=== PATIENT | female | born 1965 | race Caucasian/White ===

== ENCOUNTER 2018-06-14 04:20 | Inpatient (IN) ==
[2018-06-14 04:43] LABS: Basophils # 0.1 K/mm3 (0-0.2); Basophils % 0.5 % (0.1-2.0); Eosinophils # 0.2 K/mm3 (0.0-0.4); Eosinophils % 1.6 % (0.1-12.0); Hematocrit 48.9 % (37.0-47.0); Lymphocytes # 4.7 K/mm3 (0.7-4.5); Lymphocytes % 46.4 % (10-50); Mean Corpuscular HGB Conc 32.7 g/dL (31.8-35.4); Mean Corpuscular Hemoglobin 30.5 pg (27.0-31.2); Mean Corpuscular Volume 93.3 fl (81-99); Mean Platelet Volume 10.2 fl (7.4-10.4); Monocytes # 0.7 K/mm3 (0.1-1.0); Monocytes % 6.8 % (1.7-9.3); Neutrophils # 4.5 K/mm3 (1.8-7.8); Neutrophils % 44.7 % (37.0-80.0); Platelet Count 178 K/mm3 (142-424); Red Blood Count 5.24 M/mm3 (4.20-5.40); Red Cell Distribution Width 13.4 % (11.5-17.5)
[2018-06-14 04:54] LABS: Anion Gap 13.3 mEq/L (5-15); Blood Urea Nitrogen 20 mg/dL (7-18); Calcium 9.1 mg/dL (8.5-10.1); Carbon Dioxide 32 mmol/L (21.0-32.0); Chloride 103 mmol/L (98-107); Glucose 134 mg/dL (74-106); Potassium 3.3 mmoL/L (3.5-5.1); Sodium 145 mmol/L (136-145)
--- NOTE | 2018-06-14 05:01 | Emergency Department Note ---
ED Disposition Clinical Impression: Accelerated essential hypertension Disposition: Home, Self-Care Condition on Discharge: Good Instructions: High Blood Pressure Additional Instructions: follow up with Dr. Melendez on saturday, call for follow up appointment. Return for recurrent chest discomfrt Prescriptions: Amlodipine Besylate [Amlodipine 5mg tab] 5 mg PO DAILY 10 Days #10 tab Referrals: Provider,Referral, MD [Primary Care Provider] - Time of Disposition: 06:48 - Critical Care Critical Care Time: No Attestation: On 06/14/18, the high probability of a clinically significant, sudden or life threatening deterioration of the following system(s) required my full and direct attention, intervention and personal management. The time I documented below is in addition to time spent performing reported procedures but includes the following listed in this critical care notation. Medical Decision Making - Medical Records Medical records reviewed: Yes: I reviewed the patient's medical records. - Yousuf Inquiry Pt receiving controlled substance: No Yousuf was queried for this patient: No Vital Signs: 06/14/18 04:21 06/14/18 04:50 06/14/18 05:18 Temperature 98.8 F 98.8 F Temperature Source Oral Oral Pulse Rate [Right Radial] 69 60 73 Respiratory Rate 16 16 16 Blood Pressure [Right Arm] 210/135 H 175/117 H 176/105 H Blood Pressure Mean [Right Arm] 160 136 128 Blood Pressure Source [Right Arm] Automatic Cuff Automatic Cuff Blood Pressure Position [Right Arm] Sitting Supine 02 Sat by Pulse Oximetry 97 98 97 Oxygen Delivery Method Room Air Room Air Room Air 06/14/18 05:30 06/14/18 06:11 Temperature 98.7 F Temperature Source Oral Pulse Rate [Right Radial] 74 82 Respiratory Rate 17 16 Blood Pressure [Right Arm] 137/77 144/84 H Blood Pressure Mean [Right Arm] 97 104 Blood Pressure Source [Right Arm] Automatic Cuff Blood Pressure Position [Right Arm] Supine 02 Sat by Pulse Oximetry 94 L 97 Oxygen Delivery Method Room Air Room Air - Lab Data Lab results reviewed: Yes: I reviewed the patient's lab results. Lab Results 06/14/18 04:30: WBC 10.0, RBC 5.24, Hgb 16.0, Hct 48.9 H, MCV 93.3, MCH 30.5, MCHC 32.7, RDW 13.4, Plt Count 178, MPV 10.2, Neut % (Auto) 44.7, Lymph % (Auto) 46.4, [place] % (Auto) 6.8, Eos % (Auto) 1.6, Baso % (Auto) 0.5, Neut # (Auto) 4.5, Lymph # (Auto) 4.7 H, [place] # (Auto) 0.7, Eos # (Auto) 0.2, Baso # (Auto) 0.1 06/14/18 04:30: Sodium 145, Potassium 3.3 L, Chloride 103, Carbon Dioxide 32, Anion Gap 13.3, BUN 20 H, Creatinine 0.89, Estimated Creat Clear 107, Estimated GFR 67, Est GFR ( Amer) 81, Glucose 134 H, Calcium 9.1, Troponin I < 0.02 Result diagrams: 06/14/18 04:30 06/14/18 04:30 Orders (Tests/Meds): ED MEDICATIONS Generic Name Dose Route Start Last Admin Trade Name Freq PRN Reason Stop Dose Admin Sodium Chloride 10 ml 06/14/18 04:28 Saline Flush 10ml Syringe IV 07/14/18 04:27 NEEDED PRN Maintain IV Site Discontinued Medications Generic Name Dose Route Start Last Admin Trade Name Freq PRN Reason Stop Dose Admin Aspirin 324 mg 06/14/18 04:28 06/14/18 04:38 Aspirin 81mg Chewable Tablet PO 06/14/18 04:29 324 mg ONCE ONE Administration Hydralazine HCl 20 mg 06/14/18 04:34 06/14/18 04:38 Apresoline 20mg/Ml 1ml Vial IV 06/14/18 04:35 20 mg ONCE ONE Administration Hydralazine HCl 20 mg 06/14/18 04:36 Apresoline 20mg/Ml 1ml Vial IV 06/14/18 04:37 ONCE ONE Ondansetron HCl 4 mg 06/14/18 05:08 06/14/18 05:17 Zofran 4mg/2ml Vial IV 06/14/18 05:09 4 mg ONCE ONE Administration ORDERS Category Date Time Status Trop I [Troponin I] Stat Lab 06/14/18 06:22 Ordered Chest Pain HPI - General Chief Complaint: Chest Pain Stated Complaint: Chest Pain Time Seen by Provider: 06/14/18 04:58 Mode of Arrival: Ambulatory Source of Information: Patient Limitations: No Limitations Description of Symptoms (Recalled from ER Triage Doc. 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 Presents asymptomatic but with elevated pressures - Related Data Home Medications Medication Instructions Recorded Confirmed escitalopram 10 mg tablet 10 mg PO ONCE 05/08/17 06/14/18 hydrochlorothiazide 12.5 mg tablet 12.5 mg PO QAM 05/08/17 06/14/18 lisinopril 20 mg tablet 20 mg PO ONCE 05/08/17 06/14/18 Previous Rx's Medication Instructions Recorded Amlodipine Besylate [Amlodipine 5 mg PO DAILY 10 Days #10 tab 06/14/18 5mg tab] Allergies Allergy/AdvReac Type Severity Reaction Status Date / Time No Known Allergies Allergy Verified 06/14/18 04:27 [facility] History - Hepatitis A Screen Drug use history?: No High risk sexual behaviors?: No History of sexually transmitted infection?: No Currently employed?: No Childcare worker?: No Do you have indoor plumbing?: Yes Do you have electricity?: Yes Attestation statement:: This patient has been screened for Hepatitis A risk factors. I have reviewed the patient's past medical history: Yes Medical History: Reports:: Depression, Hypertension Other Surgeries: Yes: No Previous Surgery Amputation: No Fractures: No - Social History Smoking Status: Current every day smoker Tobacco Type: cigarettes Alcohol Intake: never Occupational Status: employed - Psychiatric History Expresses thoughts of harming self/others: None Suicide Plan Description: No Plan Pschychiatric History:: Reports:: Depression Family Hx:: Hypertension ROS Obtained: Yes All systems reviewed & no additional complaints - Constitutional Constitutional: Denies chills - Eyes Eyes: Denies change in vision - ENT Ears, Nose, Mouth, and Throat: Denies sore throat, Denies throat swelling - Cardiovascular Cardiovascular: Reports system reviewed and no additional complaints, except as docu, Reports chest pain, Reports chest pain at rest, Denies dyspnea, Denies leg edema, Denies rapid heart rate (resolved) - Respiratory Respiratory: Yes system reviewed and no additional complaints, except as docu, Yes chest congestion, Yes cough - Gastrointestinal Gastrointestingal: Reports: system reviewed and no additional complaints, except as docu. Denies: diarrhea, nausea, vomiting - Genitourinary Female Genitourinary: Denies dysuria, Denies flank pain - Musculoskeletal Musculoskeletal: Reports system reviewed and no additional complaints, except as docu, Denies joint pain, Denies joint stiffness, Denies joint swelling - Integumentary/Breasts Skin/Breast: Denies rash - Neurologic Neurologic: Denies behavioral changes, Denies headache(s), Denies tingling/numbness/burning sensations, Denies syncope, Denies tingling, Denies weakness - Hematologic/Lymphatic Henatologic/Lymphatic: Denies easy bleeding, Denies easy bruising Physical Exam - General General appearance: alert, in no apparent distress, obese - Head Head exam: atraumatic, normocephalic, normal inspection - Eye Eye exam: Present: normal appearance, PERRL, EOMI - ENT ENT exam: Present: normal exam - Neck Neck exam: Present: normal inspection - Respiratory Respiratory exam: Present: normal lung sounds bilaterally. Absent: respiratory distress - Cardiovascular Cardiovascular exam: Present: regular rate, normal rhythm. Absent: bradycardia, tachycardia, JVD - Abdominal Exam Abdominal exam: Present: soft. Absent: distention, tenderness, guarding, rebound - Extremities Exam Extremities exam: Present: normal inspection, full ROM, normal capillary refill. Absent: calf tenderness - Neurological Exam Neurological exam: Present: alert, oriented X3 - Skin Skin exam: Present: warm, dry, intact, normal color - Lymphatic Lymphatic Findings: no adenopathy
[2018-06-14 09:38] LABS: Basophils # 0.1 K/mm3 (0-0.2); Basophils % 0.4 % (0.1-2.0); Eosinophils # 0.1 K/mm3 (0.0-0.4); Eosinophils % 0.7 % (0.1-12.0); Hematocrit 48.4 % (37.0-47.0); Lymphocytes # 3.5 K/mm3 (0.7-4.5); Mean Corpuscular HGB Conc 32.9 g/dL (31.8-35.4); Mean Corpuscular Hemoglobin 30.3 pg (27.0-31.2); Mean Corpuscular Volume 92.1 fl (81-99); Mean Platelet Volume 9.9 fl (7.4-10.4); Monocytes # 0.6 K/mm3 (0.1-1.0); Monocytes % 3.9 % (1.7-9.3); Neutrophils # 10.2 K/mm3 (1.8-7.8); Platelet Count 165 K/mm3 (142-424); Red Blood Count 5.26 M/mm3 (4.20-5.40); Red Cell Distribution Width 13.4 % (11.5-17.5); White Blood Count 14.4 K/mm3 (4.8-10.8)
[2018-06-14 10:36] LABS: Anion Gap 17.3 mEq/L (5-15); Calcium 9.3 mg/dL (8.5-10.1)
[2018-06-14 10:41] LABS: Potassium 3.3 mmoL/L (3.5-5.1)
--- NOTE | 2018-06-14 11:31 | Pharmacy Consult Notes ---
[facility] Pharmacy VTE Monitoring - Patient Demographics Admission date: 06/14/18 Report Date: 06/14/18 Time: 11:30 Allergies/Adverse Reactions: Patient Allergies No Known Allergies Allergy (Verified 06/14/18 04:27) Height: 1.57 m Weight: 87.861 kg Patient Problems: Current Active Problems Accelerated essential hypertension (Acute) - VTE Risk Labs: VTE Related Lab Results Hgb 16.0 g/dL (12.2-16.2) 06/14/18 09:24 Hct 48.4 % (37.0-47.0) H 06/14/18 09:24 Plt Count 165 K/mm3 (142-424) 06/14/18 09:24 APTT 104.3 seconds (23.6-34.0) H* 06/14/18 09:24 BUN 14 mg/dL (7-18) D 06/14/18 09:24 Creatinine 0.73 mg/dL (0.55-1.02) 06/14/18 09:24 Estimated Creat Clear 126 mL/min (50-200) 06/14/18 09:24 Was VTE Risk Assessment Performed: Yes VTE Score: 2 VTE Risk Level: Low Risk - Prophylaxis VTE Prophylaxis Ordered?: Yes Types of VTE Prophylaxis: TEDS Knee High (RONI HOSE ORDER PLACED) Location of Applied Device: Not Applicable
--- NOTE | 2018-06-14 13:51 | History & Physical Report ---
*Admission Date: 06/14/18 *Chief complaint: Chest pressure and left arm pain *History of present illness: Mrs. Adrian is a 52-year-old female with history of anxiety and hypertension who presented to the ER this morning due to an episode of chest pressure and left arm pain. She reports her blood pressure has been a little less well-controlled over the past several days. She has been asymptomatic until today when she awoke this morning, was doing some laundry and subsequently developed some chest pressure that began to refer to her left arm. At that time she woke her with concern that she was having a heart attack. She presented to the ER where she was found to be hypertensive with systolics greater than 200. Initial lab work showed a normal troponin. Subsequent labs after improving blood pressure with a dose of hydralazine showed a bump in her troponin and some T wave abnormalities. Cardiology was consulted emergently and patient was taken to the [facility] for concern of ACS. Findings consistent with Takatsubo cardiomyopathy.Findings on left heart cath as follows: 1. Trivial coronary artery disease. 2. Borderline normal left ventricular systolic function with severe apical and apical anterior wall hypokinesis 3. Normal left ventricular end-diastolic pressure 4. Normal solitary bilateral renal arteries Patient examined after getting to the floor. Currently denies any chest pain, referred pains, shortness of breath, nausea, vomiting. Has some minimal sore ness at site of cath insertion in right groin. Otherwise feeling a little tired. [facility] History I have reviewed the patient's past medical history: Yes Medical History: Reports:: Depression, Hypertension Denies:: Cancer, Diabetes Mellitus Type 1, Diabetes Mellitus Type 2, MRSA *Have you ever received a pneumonia vaccine?: No *Have you received a flu vaccine this season?: Yes Other Surgeries: Yes: No Previous Surgery Amputation: No Fractures: No - *Social History Educational Level: Completed College Smoking Status: Current every day smoker Tobacco Type: cigarettes # Packs/Day (cigarettes): 1 Alcohol Intake: never *Occupational Status:: employed Housing: house Household Members: spouse *Travel in the last 8 weeks: None - Psychiatric History Expresses thoughts of harming self/others: None Suicide Plan Description: No Plan Pschychiatric History:: Reports:: Depression Family Hx:: Coronary Artery Disease, Heart Attack, Hypertension, Stroke Review of Systems - Review of Systems Review of systems:: pertinent systems reviewed and negative unless documented below - *Neurologic Denies behavioral changes, Denies headache(s), Denies tingling/numbness/burning sensations, Denies fainting, Denies tingling, Denies weakness Meds Home Medications Medication Instructions Recorded Confirmed Type escitalopram 10 mg tablet 10 mg PO DAILY 05/08/17 06/14/18 History lisinopril 20 mg tablet 20 mg PO DAILY 05/08/17 06/14/18 History Bisoprol/Hydrochlorothiazide 1 tab PO DAILY 06/14/18 06/14/18 History [Bisoprolol-Hctz 10-6.25 mg Tab] Allergies Allergy/AdvReac Type Severity Reaction Status Date / Time No Known Allergies Allergy Verified 06/14/18 04:27 Exam Vital signs and Labs for Last 24 Hours: Temp Pulse Resp BP Pulse Ox 97.9 F 94 H 15 149/74 H 96 06/14/18 11:15 06/14/18 12:30 06/14/18 12:30 06/14/18 12:30 06/14/18 12:30 Laboratory Results - last 24 hr 06/14/18 04:30: WBC 10.0, RBC 5.24, Hgb 16.0, Hct 48.9 H, MCV 93.3, MCH 30.5, MC HC 32.7, RDW 13.4, Plt Count 178, MPV 10.2, Neut % (Auto) 44.7, Lymph % (Auto) 46.4, [place] % (Auto) 6.8, Eos % (Auto) 1.6, Baso % (Auto) 0.5, Neut # (Auto) 4.5, Lymph # (Auto) 4.7 H, [place] # (Auto) 0.7, Eos # (Auto) 0.2, Baso # (Auto) 0.1 06/14/18 04:30: Sodium 145, Potassium 3.3 L, Chloride 103, Carbon Dioxide 32, Anion Gap 13.3, BUN 20 H, Creatinine 0.89, Estimated Creat Clear 107, Estimated GFR 67, Est GFR ( Amer) 81, Glucose 134 H, Calcium 9.1, Troponin I < 0.02 06/14/18 06:25: Troponin I 3.47 H 06/14/18 09:24: APTT 104.3 H* 06/14/18 09:24: WBC 14.4 H D, RBC 5.26, Hgb 16.0, Hct 48.4 H, MCV 92.1, MCH 30.3, MCHC 32.9, RDW 13.4, Plt Count 165, MPV 9.9, Neut % (Auto) 71.0, Lymph % (Auto) 24.0, [place] % (Auto) 3.9, Eos % (Auto) 0.7, Baso % (Auto) 0.4, Neut # (Auto) 10.2 H, Lymph # (Auto) 3.5, [place] # (Auto) 0.6, Eos # (Auto) 0.1, Baso # (Auto) 0.1 06/14/18 09:24: Sodium 144, Potassium 3.3 L, Chloride 103, Carbon Dioxide 27, Anion Gap 17.3 H, BUN 14 D, Creatinine 0.73, Estimated Creat Clear 126, Estimated GFR 84, Est GFR ( Amer) 102 D, Glucose 133 H, Calcium 9.3 I & O for Last 24 hours: Intake & Output 06/11/18 06/12/18 06/13/18 06/14/18 23:59 23:59 23:59 23:59 Weight 87.861 kg - *Routine HEENT Exam Head: Present: normocephalic Eye: Present: EOMI, PERRL ENT: Present: mucous membranes moist - *Routine Neck Exam Present: supple. Absent: lymphadenopathy - *Routine Respiratory Exam Present: CTA bilaterally - *Routine Cardiovascular Exam Present: RRR, Normal S1, Normal S2. Absent: murmur - *Routine Abdominal Exam Present: soft, normoactive bowel sounds. Absent: tenderness - *Routine Rectal Exam Patient deferred: visual exam - *Routine Exam Patient deferred: external exam - *Routine Extremities Exam Absent: cyanosis, clubbing, edema - *Routine Skin Exam Present: intact. Absent: cyanosis - *Routine Neurological Exam Present: alert, oriented X3 Assessment and Plan (1) Hypertensive emergency Current visit: Yes Status: Acute Category: Medical Code(s): I16.1 - Hypertensive emergency Resolved with treatment in the ER. Continue to monitor and maintain aggressive blood pressure control. (2) Takotsubo cardiomyopathy Current visit: Yes Status: Acute Category: Medical Code(s): I51.81 - Takotsubo syndrome Apical hypokinesis due to stress cardiomyopathy. -Aggressive blood pressure control less than 140/90 -Continue home bisoprolol, HCTZ, lisinopril. -Continue to monitor on telemetry overnight. -Echocardiogram ordered -Heart cath performed, no flow-limiting coronary artery disease -Cardiology consulted, appreciate recommendations (3) Depression Current visit: Yes Status: Chronic Qualifiers: Depression Type: major depressive disorder Major depression recurrence: single episode Active/Remission status: currently active Major depression episode severity: moderate Qualified Code(s): F32.1 - Major depressive disorder, single episode, moderate Category: Medical Code(s): F32.9 - Major depressive disorder, single episode, unspecified Continue patient citalopram.
[2018-06-15 07:10] LABS: Eosinophils # 0.1 K/mm3 (0.0-0.4); Eosinophils % 1.2 % (0.1-12.0); Lymphocytes # 3.1 K/mm3 (0.7-4.5); Mean Corpuscular Volume 93.3 fl (81-99); Red Cell Distribution Width 13.6 % (11.5-17.5)
[2018-06-15 07:17] LABS: Basophils % 0.4 % (0.1-2.0); Hematocrit 43.5 % (37.0-47.0); Lymphocytes % 36.9 % (10-50); Mean Corpuscular Hemoglobin 29.8 pg (27.0-31.2); Mean Platelet Volume 9.9 fl (7.4-10.4); Monocytes # 0.5 K/mm3 (0.1-1.0); Monocytes % 6.1 % (1.7-9.3); Neutrophils # 4.7 K/mm3 (1.8-7.8); Neutrophils % 55.3 % (37.0-80.0); Platelet Count 139 K/mm3 (142-424); Red Blood Count 4.66 M/mm3 (4.20-5.40); White Blood Count 8.4 K/mm3 (4.8-10.8)
[2018-06-15 07:20] LABS: Hemoglobin 13.9 g/dL (12.2-16.2)
[2018-06-15 07:30] LABS: Anion Gap 13.4 mEq/L (5-15); Calcium 8.5 mg/dL (8.5-10.1); Potassium 3.4 mmoL/L (3.5-5.1)
--- NOTE | 2018-06-15 11:27 | Progress Note ---
Internal Medicine - PN: Subj *Date: 06/15/18 *Time: 09:00 Interval history: Ms. Adrian is a 52-year-old female with takatsubo cardiomyopathy. Has been stable overnight with a few episodes of ectopy. No sustained V. tach or arrhythmia. Remains asymptomatic without chest pain or shortness of breath, or referred pains to left arm. Blood pressure somewhat labile with increasing hypertension this morning prior to morning meds. Required single dose of enalapril this morning with improvement in blood pressure. Tolerating regular diet and voiding independently. Exam Vital signs and Labs for Last 24 Hours: Temp Pulse Resp BP Pulse Ox 98.5 F 54 L 14 157/101 H 95 06/15/18 08:00 06/15/18 10:00 06/15/18 10:00 06/15/18 10:00 06/15/18 10:00 Laboratory Results - last 24 hr 06/15/18 06:48: WBC 8.4 D, RBC 4.66, Hgb 13.9 D, Hct 43.5, MCV 93.3, MCH 29.8, MCHC 32.0, RDW 13.6, Plt Count 139 L, MPV 9.9, Neut % (Auto) 55.3, Lymph % (Auto) 36.9, [place] % (Auto) 6.1, Eos % (Auto) 1.2, Baso % (Auto) 0.4, Neut # (Auto) 4.7, Lymph # (Auto) 3.1, [place] # (Auto) 0.5, Eos # (Auto) 0.1, Baso # (Auto) 0.0 06/15/18 06:48: Sodium 144, Potassium 3.4 L, Chloride 107, Carbon Dioxide 27, Anion Gap 13.4, BUN 19 H D, Creatinine 0.92 D, Estimated Creat Clear 103, Estim ated GFR 64, Est GFR ( Amer) 78 D, Glucose 119 H, Calcium 8.5 06/15/18 06:48: Magnesium 2.1 I & O for Last 24 hours: Intake & Output 06/12/18 06/13/18 06/14/18 06/15/18 23:59 23:59 23:59 23:59 Intake Total 1080 / 1080 120 / 120 Balance 1080 / 1080 120 / 120 Weight 87.861 kg 90.293 kg - Constitutional obese - *Routine HEENT Exam Head: Present: normocephalic Eye: Present: EOMI, PERRL ENT: Present: mucous membranes moist - *Routine Neck Exam Present: supple. Absent: lymphadenopathy - *Routine Respiratory Exam Present: CTA bilaterally - *Routine Cardiovascular Exam Present: RRR - *Routine Abdominal Exam Present: soft, normoactive bowel sounds. Absent: tenderness - *Routine Extremities Exam Absent: cyanosis, clubbing, edema Comments: Trocar insertion site and right inguinal crease, clean dry and intact - *Routine Skin Exam Present: warm. Absent: rash - *Routine Neurological Exam Present: alert, oriented X3 Assessment and Plan (1) Hypertensive emergency Current visit: Yes Status: Acute Category: Medical Code(s): I16.1 - Hypertensive emergency (2) Takotsubo cardiomyopathy Current visit: Yes Status: Acute Category: Medical Code(s): I51.81 - Takotsubo syndrome Continuing aggressive management of hypertension. Continue bisoprolol, HCTZ, lisinopril 20 mg, if systolics consistently above 130, will increase to 40 mg of lisinopril daily -Noted to have QT prolongation, left anterior fascicular block on EKG today. -Echo ordered to assess left ventricular function and wall motion abnormalities. -Pending cardiology assessment in the morning for further management. -Continue to monitor patient on telemetry as there is high risk for complication s in the first 48 hours after her heart cath with sustained labile blood pressure (3) Depression Current visit: Yes Status: Chronic Qualifiers: Depression Type: major depressive disorder Major depression recurrence: single episode Active/Remission status: currently active Major depression episode severity: moderate Qualified Code(s): F32.1 - Major depressive disorder, single episode, moderate Category: Medical Code(s): F32.9 - Major depressive disorder, single episode, unspecified Will hold patient's citalopram at this time due to QT prolongation. Mood appears stable (4) Class 2 obesity due to excess calories with body mass index (BMI) of 36.0 to 36.9 in adult Current visit: Yes Status: Chronic Qualifiers: Serious obesity comorbidity presence: without serious comorbidity Qualified Code(s): E66.09 - Other obesity due to excess calories; Z68.36 - Body mass index (BMI) 36.0-36.9, adult Category: Medical Code(s): E66.09 - Other obesity due to excess calories; Z68.36 - Body mass index (BMI) 36.0-36.9, adult Complicates all aspects of care
[2018-06-16 06:57] LABS: Basophils % 0.3 % (0.1-2.0); Eosinophils # 0.2 K/mm3 (0.0-0.4); Eosinophils % 2.9 % (0.1-12.0); Hematocrit 41.4 % (37.0-47.0); Hemoglobin 13.6 g/dL (12.2-16.2); Lymphocytes # 2.8 K/mm3 (0.7-4.5); Lymphocytes % 35.8 % (10-50); Mean Corpuscular HGB Conc 32.7 g/dL (31.8-35.4); Mean Corpuscular Hemoglobin 30.7 pg (27.0-31.2); Mean Corpuscular Volume 93.9 fl (81-99); Mean Platelet Volume 10.5 fl (7.4-10.4); Monocytes # 0.5 K/mm3 (0.1-1.0); Monocytes % 6.2 % (1.7-9.3); Neutrophils # 4.3 K/mm3 (1.8-7.8); Neutrophils % 54.8 % (37.0-80.0); Platelet Count 138 K/mm3 (142-424); Red Blood Count 4.41 M/mm3 (4.20-5.40); Red Cell Distribution Width 13.5 % (11.5-17.5); White Blood Count 7.8 K/mm3 (4.8-10.8)
[2018-06-16 07:33] LABS: Albumin Level 2.9 gm/dL (3.4-5.0); Albumin/Globulin Ratio 0.9 (1.1-1.8); Anion Gap 12.7 mEq/L (5-15); Calcium 8.4 mg/dL (8.5-10.1); Globulin 3.1 gm/dl (1.3-3.2); Potassium 3.7 mmoL/L (3.5-5.1)
--- NOTE | 2018-06-16 07:51 | Consult Report ---
History of Present Illness Consult date: 06/16/18 Requesting physician: Hayden Bass Chief complaint: NSTEMI Additional Medical History:: 1. HTN, treated for many years 2. Tobacco use, 1/2-1 ppd since her 20's 3. History of Depression 4. NSTEMI, 05/2018 A. Cardiac cath, 05/2018, ANGIOGRAPHIC RESULTS: 1. The left main artery angiographically normal 2. The left anterior descending artery mild luminal irregularities 3. The circumflex artery large and angiographically normal 4. The right coronary artery large and dominant with mild luminal irregularities 5. The [place] ventriculogram reveals borderline normal left ventricular systolic function with severe hypokinesis of the apical and apical anterior torres 6. The left ventricular end-diastolic pressure 11 7. Bilateral selective renal arteriogram was performed. This showed solitary and normal renal arteries bilaterally with no gradient on engagement IMPRESSION: 1. Trivial coronary artery disease. 2. Borderline normal left ventricular systolic function with severe apical and apical anterior wall hypokinesis 3. Normal left ventricular end-diastolic pressure 4. Normal solitary bilateral renal arteries 5. Broken heart syndrome PLAN: 1. Continue with aggressive medical therapy 2. Patient has broken heart syndrome. Treatment should include beta blockers, ARSH inhibitor, and aggressive control of blood pressure 3. Continue dual antiplatelet therapy at this time History of present illness: 52-year-old white female with history of tobacco use and hypertension presented to the emergency department for acute onset of substernal chest pressure and tightness with left arm discomfort on 06/14/2018. Symptoms started after patient began a load of laundry. She denies any similar symptoms previously. Initial troponin was normal but patient was kept for observation with second troponin returning elevated. Patient did subsequently undergo cardiac catheterization revealing mild coronary artery disease with evidence of apical and anterior hypokinesis consistent with Takotsubo cardiomyopathy. Patient denies any recent significant stress in her life. She does work with [employer] and does have a lot of contact with low income families and has a lot of work to do but states no more than normal. Patient's EKGs over the weekend have shown progression of the non-ST elevation PR with anterior and lateral T wave inversion. Despite no significant coronary artery disease patient has been kept on dual antiplatelet therapy with aspirin and Brilinta. Patient's blood pressure has been difficult to control. Patient denies any chest pain, pressure or tightness since early Saturday morning. She has had no significant arrhythmias over the weekend. Preliminary echocardiogram performed over the weekend with ejection fraction es timated at near 50% with again apical and anterior hypokinesis noted. [facility] History Medical History: Reports:: Depression, Hypertension Denies:: Cancer, Diabetes Mellitus Type 1, Diabetes Mellitus Type 2, MRSA *Have you ever received a pneumonia vaccine?: No *Have you received a flu vaccine this season?: Yes Other Surgeries: Yes: No Previous Surgery Amputation: No Fractures: No - *Social History Educational Level: Completed College Smoking Status: Current every day smoker Tobacco Type: cigarettes # Packs/Day (cigarettes): 1 Alcohol Intake: never *Occupational Status:: employed Housing: house Household Members: spouse *Travel in the last 8 weeks: None - Psychiatric History Expresses thoughts of harming self/others: None Suicide Plan Description: No Plan Pschychiatric History:: Reports:: Depression Family Hx:: Coronary Artery Disease, Heart Attack, Hypertension, Stroke Meds Home Medications Medication Instructions Recorded Confirmed Type escitalopram 10 mg tablet 10 mg PO DAILY 05/08/17 06/14/18 History lisinopril 20 mg tablet 20 mg PO DAILY 05/08/17 06/14/18 History Bisoprol/Hydrochlorothiazide 1 tab PO DAILY 06/14/18 06/14/18 History [Bisoprolol-Hctz 10-6.25 mg Tab] Allergies Allergy/AdvReac Type Severity Reaction Status Date / Time No Known Allergies Allergy Verified 06/14/18 04:27 Review of Systems - *Cardiovascular Reports chest pain, Denies shortness of breath - *Respiratory Denies cough, Denies shortness of breath - *Gastrointestinal Denies abdominal pain, Denies loose stools - *Genitourinary Denies blood in urine - *Musculoskeletal Denies joint pain, Denies back pain - *Neurologic Denies behavioral changes, Denies headache(s), Denies tingling/numbness/burning sensations, Denies fainting, Denies tingling, Denies weakness Exam Vital signs and Labs for Last 24 Hours: Temp Pulse Resp BP Pulse Ox 98.4 F 56 L 16 157/98 H 96 06/16/18 04:00 06/16/18 05:59 06/16/18 05:59 06/16/18 05:59 06/16/18 05:59 Laboratory Results - last 24 hr 06/15/18 06:48: Magnesium 2.1 06/16/18 05:29: WBC 7.8, RBC 4.41, Hgb 13.6, Hct 41.4, MCV 93.9, MCH 30.7, MCHC 32.7, RDW 13.5, Plt Count 138 L, MPV 10.5 H, Neut % (Auto) 54.8, Lymph % (Auto) 35.8, [place] % (Auto) 6.2, Eos % (Auto) 2.9, Baso % (Auto) 0.3, Neut # (Auto) 4.3, Lymph # (Auto) 2.8, [place] # (Auto) 0.5, Eos # (Auto) 0.2, Baso # (Auto) 0.0 06/16/18 05:29: Sodium 143, Potassium 3.7, Chloride 106, Carbon Dioxide 28, Anion Gap 12.7, BUN 23 H, Creatinine 0.87, Estimated Creat Clear 110, Estimated GFR 69, Est GFR ( Amer) 83, Glucose 112 H, Calcium 8.4 L, Magnesium 1.8 D, Total Bilirubin 1.0, AST 21, ALT 27, Alkaline Phosphatase 49, Total Protein 6.0 L, Albumin 2.9 L, Globulin 3.1, Albumin/Globulin Ratio 0.9 L I & O for Last 24 hours: Intake & Output 06/13/18 06/14/18 06/15/18 06/16/18 11:59 11:59 11:59 11:59 Intake Total 1680 / 1680 1200 / 1200 Balance 1680 / 1680 1200 / 1200 Weight 193 lb 11.2 oz 199 lb 1 oz 201 lb - *Routine HEENT Exam Head: Present: normocephalic Eye: Present: EOMI, PERRL ENT: Present: mucous membranes moist - *Routine Neck Exam Present: supple. Absent: JVD, carotid bruit - *Routine Respiratory Exam Present: CTA bilaterally. Absent: accessory muscle use, rales, rhonchi, wheezes - *Routine Cardiovascular Exam Present: RRR. Absent: murmur, gallop, rubs - *Routine Abdominal Exam Present: soft. Absent: tenderness, distended, guarding - *Routine Extremities Exam Absent: edema, calf tenderness - *Routine Neurological Exam Present: alert, oriented X3, moving all extremities Assessment and Plan (1) Hypertensive emergency Current visit: Yes Status: Acute Category: Medical Code(s): I16.1 - Hyper tensive emergency (2) Takotsubo cardiomyopathy Current visit: Yes Status: Acute Category: Medical Code(s): I51.81 - Takotsubo syndrome (3) Depression Current visit: Yes Status: Chronic Qualifiers: Depression Type: major depressive disorder Major depression recurrence: single episode Active/Remission status: currently active Major depression episode severity: moderate Qualified Code(s): F32.1 - Major depressive disorder, single episode, moderate Category: Medical Code(s): F32.9 - Major depressive disorder, single episode, unspecified (4) Class 2 obesity due to excess calories with body mass index (BMI) of 36.0 to 36.9 in adult Current visit: Yes Status: Chronic Qualifiers: Serious obesity comorbidity presence: without serious comorbidity Qualified Code(s): E66.09 - Other obesity due to excess calories; Z68.36 - Body mass index (BMI) 36.0-36.9, adult Category: Medical Code(s): E66.09 - Other obesity due to excess calories; Z68.36 - Body mass index (BMI) 36.0-36.9, adult - Assessment and plan all Dx Assessment and Plan for all problems:: 1. Would recommend discontinuing bisoprolol and change to carvedilol 25 mg daily along with discontinuing Norvasc. Continue lisinopril therapy. 2. Continue dual antiplatelet therapy. With no evidence of apical thrombus we will forego anticoagulation therapy at this time. 3. Patient to ambulate this a.m. with plans to discharge patient later today if blood pressure improves.
--- NOTE | 2018-06-16 08:06 | Progress Note ---
Internal Medicine - PN: Subj *Date: 06/16/18 *Time: 08:04 Interval history: Overall patient feels well, did well through the night, denied chest pain or shortness of air. Exam Vital signs and Labs for Last 24 Hours: Temp Pulse Resp BP Pulse Ox 98.4 F 56 L 16 157/98 H 96 06/16/18 07:50 06/16/18 05:59 06/16/18 05:59 06/16/18 05:59 06/16/18 05:59 Laboratory Results - last 24 hr 06/16/18 05:29: WBC 7.8, RBC 4.41, Hgb 13.6, Hct 41.4, MCV 93.9, MCH 30.7, MCHC 32.7, RDW 13.5, Plt Count 138 L, MPV 10.5 H, Neut % (Auto) 54.8, Lymph % (Auto) 35.8, [place] % (Auto) 6.2, Eos % (Auto) 2.9, Baso % (Auto) 0.3, Neut # (Auto) 4.3, Lymph # (Auto) 2.8, [place] # (Auto) 0.5, Eos # (Auto) 0.2, Baso # (Auto) 0.0 06/16/18 05:29: Sodium 143, Potassium 3.7, Chloride 106, Carbon Dioxide 28, Anion Gap 12.7, BUN 23 H, Creatinine 0.87, Estimated Creat Clear 110, Estimated GFR 69, Est GFR ( Amer) 83, Glucose 112 H, Calcium 8.4 L, Magnesium 1.8 D, Total Bilirubin 1.0, AST 21, ALT 27, Alkaline Phosphatase 49, Total Protein 6.0 L, Albumin 2.9 L, Globulin 3.1, Albumin/Globulin Ratio 0.9 L I & O for Last 24 hours: Intake & Output 06/13/18 06/14/18 06/15/18 06/16/18 11:59 11:59 11:59 11:59 Intake Total 1680 / 1680 1440 / 1440 Balance 1680 / 1680 1440 / 1440 Weight 193 lb 11.2 oz 199 lb 1 oz 201 lb - Constitutional no acute distress - *Routine HEENT Exam Head: Present: normocephalic, atraumatic - *Routine Neck Exam Present: supple. Absent: JVD - *Routine Respiratory Exam Present: accessory muscle use, CTA bilaterally - *Routine Cardiovascular Exam Present: RRR, Normal S1, Normal S2 - *Routine Extremities Exam Absent: cyanosis, clubbing, edema - *Routine Skin Exam Present: intact. Absent: cyanosis, erythema - *Routine Neurological Exam Present: alert, oriented X3, CN II-XII intact Assessment and Plan (1) Hypertensive emergency Current visit: Yes Status: Acute Category: Medical Code(s): I16.1 - Hypertensive emergency (2) Takotsubo cardiomyopathy Current visit: Yes Status: Acute Category: Medical Code(s): I51.81 - Takotsubo syndrome (3) Depression Current visit: Yes Status: Chronic Qualifiers: Depression Type: major depressive disorder Major depression recurrence: single episode Active/Remission status: currently active Major depression episode severity: moderate Qualified Code(s): F32.1 - Major depressive disorder, single episode, moderate Category: Medical Code(s): F32.9 - Major depressive disorder, single episode, unspecified (4) Class 2 obesity due to excess calories with body mass index (BMI) of 36.0 to 36.9 in adult Current visit: Yes Status: Chronic Qualifiers: Serious obesity comorbidity presence: without serious comorbidity Qualified Code(s): E66.09 - Other obesity due to excess calories; Z68.36 - Body mass index (BMI) 36.0-36.9, adult Category: Medical Code(s): E66.09 - Other obesity due to excess calories; Z68.36 - Body mass index (BMI) 36.0-36.9, adult - Assessment and plan all Dx Assessment and Plan for all problems:: Overall patient is improving. Agree with blood pressure medication changes. Discussed case with cardiology service. Hopeful discharge this afternoon if blood pressure under better control.
--- NOTE | 2018-06-16 17:23 | Discharge Summary ---
General - General Admission date:: 06/14/18 Discharge date: 06/16/18 HPI HPI: Mrs. Adrian is a 52-year-old female with history of anxiety and hypertension who presented to the ER this morning due to an episode of chest pressure and left arm pain. She reports her blood pressure has been a little less well-controlled over the past several days. She has been asymptomatic until today when she awoke this morning, was doing some laundry and subsequently developed some chest pressure that began to refer to her left arm. At that time she woke her with concern that she was having a heart attack. She presented to the ER where she was found to be hypertensive with systolics greater than 200. Initial lab work showed a normal troponin. Subsequent labs after improving blood pressure with a dose of hydralazine showed a bump in her troponin and some T wave abnormalities. Cardiology was consulted emergently and patient was taken to the [facility] for concern of ACS. Findings consistent with Takatsubo cardiomyopathy.Findings on left heart cath as follows: 1. Trivial coronary artery disease. 2. Borderline normal left ventricular systolic function with severe apical and apical anterior wall hypokinesis 3. Normal left ventricular end-diastolic pressure 4. Normal solitary bilateral renal arteries Patient examined after getting to the floor. Currently denies any chest pain, referred pains, shortness of breath, nausea, vomiting. Has some minimal soreness at site of cath insertion in right groin. Otherwise feeling a little tired. Hospital Course Hospital Course: Patient was continued on the floor overnight, cardiology consult at this morning and recommended changing blood pressure regimen to carvedilol instead of bisoprolol, and using amlodipine instead of lisinopril. Patient did well through the afternoon on carvedilol only, but this afternoon her blood pressures come up a little bit more. She is completely asymptomatic and wishes to go home. Exam normal. I reviewed her catheter results with her, and noted that her blood pressure was high and reviewed warning signs of malignant hypertension including mental status changes, chest pain or hematuria. She is willing to go home and come back in less than 48 hours for quick recheck. We will prescribe carvedilol, HCTZ and Norvasc, I have sent these to her pharmacy and made an appointment for short-term follow-up. I feel she would benefit from discharged home for lower anxiety levels and better ability to monitor things as an outpatient. Objective Vital signs: Temp Pulse Resp BP Pulse Ox 98.4 F 60 16 180/111 H 96 06/16/18 07:50 06/16/18 17:06 06/16/18 17:06 06/16/18 17:06 06/16/18 17:06 no acute distress - *Routine HEENT Exam Head: Present: normocephalic, atraumatic Eye: Present: EOMI, PERRL - *Routine Neck Exam Present: supple, full ROM. Absent: JVD, carotid bruit - Routine Chest/Breast/Axilla Exam Chest wall: Present: tenderness - *Routine Respiratory Exam Present: CTA bilaterally, prolonged expiratory phase. Absent: accessory muscle use - *Routine Cardiovascular Exam Present: RRR, Normal S1, Normal S2. Absent: murmur, gallop - *Routine Abdominal Exam Absent: soft, normoactive bowel sounds, tenderness - *Routine Extremities Exam Absent: cyanosis, clubbing, edema - *Routine Neurological Exam Present: alert, oriented X3, CN II-XII intact Results Labs on day of discharge: Labs from last 24 hours 06/16/18 06/16/18 05:29 05:29 WBC 7.8 RBC 4.41 Hgb 13.6 Hct 41.4 MCV 93.9 MCH 30.7 MCHC 32.7 RDW 13.5 Plt Count 138 L MPV 10.5 H Neut % (Auto) 54.8 Lymph % (Auto) 35.8 [place] % (Auto) 6.2 Eos % (Auto) 2.9 Baso % (Auto) 0.3 Neut # (Auto) 4.3 Lymph # (Auto) 2.8 [place] # (Auto) 0.5 Eos # (Auto) 0.2 Baso # (Auto) 0.0 Sodium 143 Potassium 3.7 Chloride 106 Carbon Dioxide 28 Anion Gap 12.7 BUN 23 H Creatinine 0.87 Estimated Creat Clear 110 Estimated GFR 69 Est GFR ( Amer) 83 Glucose 112 H Calcium 8.4 L Magnesium 1.8 D Total Bilirubin 1.0 AST 21 ALT 27 Alkaline Phosphatase 49 Total Protein 6.0 L Albumin 2.9 L Globulin 3.1 Albumin/Globulin Ratio 0.9 L DS: Diagnosis - Discharge Diagnosis (1) Hypertensive emergency Status: Acute (2) Takotsubo cardiomyopathy Status: Acute (3) Depression Status: Chronic (4) Class 2 obesity due to excess calories with body mass index (BMI) of 36.0 to 36.9 in adult Status: Chronic Discharge Plan - Patient Discharge Instructions ACTIVITY: Continue current activity DIET: continue same diet Patient Instructions: DI for Heart Attack, High Blood Pressure, DI for Cardiac Catheterization, DI for Malignant Hypertension, DI for Surgical Site Infection, Low-Sodium Diet, DI for Coronary Artery Disease - Follow up Plan Follow up with: Franny Cortes APRN [Nurse Practitioner] - 06/18/18 10:15 am Disposition: Home, Self-Retirement Medications: Home Medications Medication Instructions Recorded Confirmed Type escitalopram 10 mg tablet 10 mg PO DAILY 05/08/17 06/14/18 History lisinopril 20 mg tablet 20 mg PO DAILY 05/08/17 06/14/18 History Bisoprol/Hydrochlorothiazide 1 tab PO DAILY 06/14/18 06/14/18 History [Bisoprolol-Hctz 10-6.25 mg Tab] Amlodipine Besylate [Amlodipine 10 mg PO DAILY #30 tab 06/16/18 Rx 10mg Tab] Carvedilol [Carvedilol 25mg Tab] 25 mg PO BID #60 tab 06/16/18 Rx hydroCHLOROthiazide [HCTZ 25mg 25 mg PO DAILY #30 tablet 06/16/18 Rx tab] Prescriptions/Medication Reconciliation: New Carvedilol [Carvedilol 25mg Tab] 25 mg PO BID #60 tab hydroCHLOROthiazide [HCTZ 25mg tab] 25 mg PO DAILY #30 tablet Amlodipine Besylate [Amlodipine 10mg Tab] 10 mg PO DAILY #30 tab Continue escitalopram 10 mg tablet 10 mg PO DAILY Discontinued lisinopril 20 mg tablet 20 mg PO DAILY Bisoprol/Hydrochlorothiazide [Bisoprolol-Hctz 10-6.25 mg Tab] 1 tab PO DAILY
--- NOTE | 2018-06-16 19:10 | Cardiology Report ---
PROCEDURE: 2-D M-mode and color Doppler study INDICATIONS FOR THE TEST: Chest pain+ COPD Heart Murmur Tobacco Smoking+ Palpitations+ Fatigue Syncope Edema Hypertension+Diabetes Mellitus Rheumatic Fever SOB MCMAHAN+Obesity Hyperlipidemia Family History HD+ Additional History anxiety, apical hypokinesis on cath, stress cardiomyopathy- takatsubo Definity contrast utilized to assess apex and wall motion PATIENT INFORMATION HEIGHT: 62 WEIGHT: 193 GENDER: Female B/P:149/74 2-D/M-MODE INTERPRETATION: 2-D MEASUREMENTS OBSERVED VALUES IN CMS Right Ventricular Dimension (RVDd) 2.8 Interventricular Septum (Thickness)(IVsd) 1.2 Left Ventricular Internal Dimensions(LVIDd) 5.3 Left Ventricular Posterior Wall (Thickness)(LVPWd) 1.2 Aortic Root 3.2 Aortic Cusp Separation 2.3 Left Atrial Dimensions (LAD) 3.9 2D 1. Left atrium is mildly enlarged, left ventricle is normal size, mild concentric left ventricular hypertrophy, visually estimated ejection fraction 55% with no obvious regional wall motion abnormality, Definity contrast was utilized to delineate endocardial surfaces. 2. The right atrium and right ventricle are mildly enlarged with normal contractility. 3. The aortic valve is minimally thickened and fibrosed. 4. The mitral and tricuspid valvular grossly normal. 5. The pulmonic valve is poorly visualized. 6. No significant pericardial effusion noted. DOPPLER INTERROGATION: Doppler interrogation of the aortic, mitral and tricuspid valvular presence of mild mitral and tricuspid regurgitation, tricuspid regurgitation jet velocity is inadequate for calculation of the right ventricular systolic pressure, diastolic parameters are inconclusive. CONCLUSION: 1. Mildly enlarged left atrium, normal left ventricular size, mild concentric left ventricular hypertrophy, visually estimated ejection fraction 55% with no regional wall motion abnormality, diastolic parameters are inconclusive. Definitely contrast was utilized to delineate endocardial surfaces. 2. Mild mitral and tricuspid regurgitation 3. No significant pericardial effusion noted.
== END 2018-06-16 18:21 | disposition home or self-care (01) | DRG 287 ==
LOC: ER 04:20 → 2ND 07:47
PROVIDERS: ADMIT Internal Medicine Adolescent Medicine; ATTEND Internal Medicine Adolescent Medicine
CPT/HCPCS: 36252; 36415; 71020; 71046; 80048; 80053; 83735; 84484; 85025; 85730; 93005; 93306; 93458; 96365; 96375; 99284; J1644; J2405; J3490; Q9967

== ENCOUNTER → 2018-06-25 11:01 | Outpatient (CLI) | payer BC, SELFPAY ==
[2018-06-25 12:20] LABS: Anion Gap 15.7 mEq/L (5-15); Blood Urea Nitrogen 25 mg/dL (7-18); Calcium 8.8 mg/dL (8.5-10.1); Carbon Dioxide 26 mmol/L (21.0-32.0); Chloride 103 mmol/L (98-107); Creatinine,Serum 1.07 mg/dL (0.55-1.02); Estimated Glomerular Filt Rate 54 ml/min (>60); GFR (African American) 65 ML/MIN (>60); Glucose 134 mg/dL (74-106); Potassium 3.7 mmoL/L (3.5-5.1); Sodium 141 mmol/L (136-145)
== END ==
PROVIDERS: Visit Provider Nurse Practitioner Family
DX: I10 Essential (primary) hypertension (principal)
CPT/HCPCS: 36415; 80048

== ENCOUNTER → 2019-03-02 10:23 | Outpatient (CLI) | payer BC, SELFPAY ==
--- NOTE | 2019-03-02 10:25 | MM_ITS ---
PROCEDURE: MM DIG SCREENING MAMM BI W/CAD CLINICAL INDICATION: SCREENING There is a history of breast cancer patient's 2 maternal aunts both diagnosed after menopause. COMPARISON: DIGMAMMDX MAMMOGRAM DX-BEATER TENDER N/C from 06/23/2003 DMDBAV DIG MAMM-DX BILAT W/ADD VIEWS from 07/13/2010 DMSB DIG MAMM-SCREEN ARNOLDO from 08/23/2015 TECHNIQUE: Standard CC and MLO images were obtained. R2 CAD reviewed. FINDINGS: Prominent diffuse heterogenic fibroglandular densities are seen in both breasts and the findings are bilateral and symmetrical. There is a mole marker left breast. There are few scattered benign-appearing microcalcifications in each breast. There is no new or suspicious lesion in either breast and no suspicious microcalcifications. IMPRESSION: Diffusely dense parenchymal pattern with no suspicious lesions seen BI-RAD Category: 2 Benign Finding(s) FOLLOW-UP: 1YR 1 Year Follow-up (A letter has been sent to the patient regarding results of the study.) Dictated by: Dr. Nathan Conley MD 03/08/2019 12:[address] Nathan Conley MD in [place] 03/08/2019 12:38
== END ==
PROVIDERS: PCP Internal Medicine Adolescent Medicine; Visit Provider Internal Medicine Adolescent Medicine
DX: Z12.31 Encounter for screening mammogram for malignant neoplasm of breast (principal)
CPT/HCPCS: 77067

== ENCOUNTER → 2019-12-12 12:30 | Outpatient (CLI) | payer BC, SELFPAY ==
[2019-12-12 16:27] LABS: Coronavirus 19 IgG Antibody Negative (Negative); Coronavirus 19 IgM Antibody Negative (Negative)
== END ==
PROVIDERS: Visit Provider Internal Medicine Gastroenterology
DX: Z03.818 Encounter for observation for suspected exposure to other biological agents ruled out (principal)
CPT/HCPCS: 36415; 86328

== ENCOUNTER 2019-12-14 11:12 | Day surgery (SDC) | payer BC, SELFPAY ==
[2019-12-08 14:42] VITALS: BMI 35.8
[2019-12-14] VITALS (7 sets, daily range): BP systolic 77–140; BP diastolic 52–96; PULSE 68–82; RESP 14–16; TEMP 36.6–36.8; O2SAT 91–97
--- NOTE | 2019-12-14 12:21 | P.PN_ITS ---
[facility] Anesthesia Checklist - Patient Identification Patient Identification: Arm Band, Verbal (Name & ) - Structural Data Admitted From: Home Planned Operative Procedure/s: Colonoscopy Consent for Planned Operative Procedure(s) Verified: Yes Verified Documents: Surgical Consent, History and Physical - NPO Status Verified Time NPO: 00:00 - Chart Verification Results Verified: None - Additional verifications Anesthesia Reactions: No - Airway Assessment C-Spine Mobility Assessed: Yes TMJ Mobility Assessed: Yes Dentition: Good Dentition - Neurological Assessment Level of Consciousness: Awake, Alert, Appropriate, Follows Commands Hx Seizures: No Numbness or tingling in extremities: No - Anesthesia Plan Anesthesia Risk discussed: Yes Anesthesia Plan: Verified ASA Class: III Anesthesia Type: MAC [facility] History I have reviewed the patient's past medical history: Yes Medical History: Reports:: Anxiety, Coronary Artery Disease, Depression, Hyperlipidemia, Hypertension Denies:: Cancer, Diabetes Mellitus Type 1, Diabetes Mellitus Type 2, Internal Pacemaker, MRSA, Seizures *Have you ever received a pneumonia vaccine?: Yes *Have you received a flu vaccine this season?: No Comment:: obesity, broken heart syndrome Anesthesia experience/problems:: no prior complications Other Surgeries: Yes: Cardiac Catheterization. No: Pacemaker Amputation: No Fractures: No - *Social History Last grade of school completed: High school graduate Smoking Status: Current every day smoker Tobacco Type: cigarettes # Packs/Day (cigarettes): 1 #Yrs smoked (if former smoker): 25 Alcohol Intake: never Substance Use Type: denies use *Occupational Status:: employed Housing: house Household Members: spouse *Travel in the last 8 weeks: None - Psychiatric History Pschychiatric History:: Reports:: Depression Family Hx:: Coronary Artery Disease, Heart Attack, Hypertension, Stroke
--- NOTE | 2019-12-14 12:44 | HMH.PROC ---
[facility] Procedure Note Procedure Note:: Colonoscopy Procedure Report: Colonoscopy with cold snare polypectomy Endoscopist: Delfino Gerber II, MD Referring physician: FLACO Osuna Date of Procedure: December 14, 2019 Equipment: Olympus 180 variable stiffness pediatric colonoscope Sedation: MAC sedation Indication: Mrs. Adrian is a 54-year-old female who is here for initial screening colonoscopy. She reports no abdominal pain, weight loss, change in her bowel habits or rectal bleeding. She reports no family history of colon cancer. Procedure: Prior to the procedure, a history and physical exam was performed, and patient's medications and allergies were reviewed. The risks, benefits and alternatives of the sedation and procedure were discussed with the patient. All questions were answered and informed consent was obtained. The patient was brought to the procedure room. Patient identification and proposed procedure were verified by the physician and the nurse. The patient was placed in a left lateral decubitus position and the scope was passed under direct vision. Throughout the procedure, the patient's blood pressure, pulse, and oxygen saturations were monitored continuously. The colonoscopy was accomplished without difficulty. The patient tolerated the procedure well. Findings: On digital rectal examination there was normal rectal tone. There were no external hemorrhoids. The colonoscope was introduced through the anal canal to the rectum and advanced to the cecum. The ileocecal valve and appendiceal orifice were identified. The scope was advanced a short distance into the ileum which appeared grossly normal. The scope was then withdrawn into the colon. The cecum, ascending and transverse colon and mucosa were grossly normal. There were 2 polyps in the descending colon (4 and 8 mm) which were removed via cold snare polypectomy. There were scattered diverticuli throughout the descending and sigmoid colon (LEFT colon). The rectum itself was normal. Upon retroflexion within the rectum there were grade 1 internal hemorrhoids. The preparation was excellent throughout with Herlong Preparation Score of 9. The cecal time was 12 minutes. Impression: 1. Colonic polyps x2 2. Left-sided diverticulosis 3. Grade 1 internal hemorrhoids Plan: I will follow up the polyp pathology and recommend repeat colonoscopy again in 5-10 years based upon the polyp histology. I would encourage bulk fiber supplementation on a long-term daily maintenance basis.
== END 2019-12-14 13:40 | disposition home or self-care (01) ==
LOC: OUTP 11:14
PROVIDERS: PCP Internal Medicine Adolescent Medicine; Visit Provider Internal Medicine Gastroenterology
PROC: 0DJD8ZZ Inspection of Lower Intestinal Tract, Via Natural or Artificial Opening Endoscopic (ICD-10-PCS; CPT 45378; principal; 2019-12-14 12:00)
DX: Z12.11 Encounter for screening for malignant neoplasm of colon (principal); K63.5 Polyp of colon; K57.30 Diverticulosis of large intestine without perforation or abscess without bleeding; K64.0 First degree hemorrhoids; F41.9 Anxiety disorder, unspecified; I25.10 Atherosclerotic heart disease of native coronary artery without angina pectoris; F32.9 Major depressive disorder, single episode, unspecified; E78.5 Hyperlipidemia, unspecified; I10 Essential (primary) hypertension; E66.9 Obesity, unspecified; Z68.35 Body mass index [BMI] 35.0-35.9, adult; Z72.0 Tobacco use
CPT/HCPCS: 45385

== ENCOUNTER → 2021-03-16 16:45 | Outpatient (CLI) | payer OTHER, SELFPAY ==
[2021-03-16 18:24] LABS: Basophils # 0.1 K/mm3 (0-0.2); Basophils % 1.4 % (0.1-2.0); Eosinophils # 0.3 K/mm3 (0.0-0.4); Eosinophils % 2.8 % (0.1-12.0); Hemoglobin 14.9 g/dL (12.2-16.2); Lymphocytes # 4.5 K/mm3 (0.7-4.5); Lymphocytes % 43.5 % (10-50); Mean Corpuscular HGB Conc 32.3 g/dL (31.8-35.4); Mean Corpuscular Hemoglobin 30.1 pg (27.0-31.2); Mean Corpuscular Volume 93.1 fl (81-99); Mean Platelet Volume 11.6 fl (7.4-10.4); Monocytes # 0.8 K/mm3 (0.1-1.0); Monocytes % 7.4 % (1.7-9.3); Neutrophils # 4.6 K/mm3 (1.8-7.8); Neutrophils % 44.8 % (37.0-80.0); Platelet Count 248 K/mm3 (142-424); Red Blood Count 4.94 M/mm3 (4.20-5.40); Red Cell Distribution Width 13.3 % (11.5-17.5); White Blood Count 10.2 K/mm3 (4.8-10.8)
[2021-03-16 19:31] LABS: Hemoglobin A1C 6.9 % (4.0-6.0)
[2021-03-16 21:32] LABS: Alanine Aminotransferase 21 U/L (12-78); Albumin Level 4.6 g/dl (3.5-5.0); Albumin/Globulin Ratio 1.5 (1.1-1.8); Alkaline Phosphatase 67 U/L (38-126); Anion Gap 12.5 mEq/L (5-15); Aspartate Amino Transferase 27 U/L (14-36); Bilirubin,Total 0.4 mg/dl (0.2-1.3); Blood Urea Nitrogen 16 mg/dl (7-17); Calcium 9.7 mg/dl (8.4-10.2); Carbon Dioxide 30 mmol/L (22.0-30.0); Chloride 101 mmol/L (98-107); Chol/HDL Ratio 4.4 (1-3.5); Cholesterol 196 mg/dl (140-200); Estimated Glomerular Filt Rate 65 ml/min (>60); GFR (African American) 79 ML/MIN (>60); Glucose 90 mg/dl (74-100); HDL Cholesterol 45 mg/dl (40-60); Potassium 3.5 mmoL/L (3.5-5.1); Sodium 140 mmol/L (136-145); Total Protein,Serum 7.6 g/dl (6.3-8.2); Triglycerides 185 mg/dl (30-150); VLDL Cholesterol 37 mg/dL (0-40)
[2021-03-16 21:43] LABS: Direct LDL Cholesterol 115.56 mg/dL (100-129)
[2021-03-16 22:02] LABS: Thyroid Stimulating Hormone 1.65 uIU/mL (0.465-4.68)
== END ==
PROVIDERS: Visit Provider Internal Medicine Adolescent Medicine
DX: Z00.00 Encounter for general adult medical examination without abnormal findings (principal); I25.10 Atherosclerotic heart disease of native coronary artery without angina pectoris; E78.5 Hyperlipidemia, unspecified; Z79.899 Other long term (current) drug therapy
CPT/HCPCS: 36415; 80053; 80061; 83036; 84443; 85025

== ENCOUNTER → 2021-06-27 12:31 | Outpatient (CLI) | payer OTHER, SELFPAY ==
--- NOTE | 2021-06-27 12:45 | CT_ITS ---
FINAL REPORT CLINICAL HISTORY: H/O NICOTINE DEPENDENCE 1PPD X25 YEARS FINDINGS: Low-Dose Chest CT CTDI vol (mGy): 2.90 DLP (mGy-cm): 82.04 Axial images were obtained from the lung apex to the mid abdomen by computed tomography. Low-dose protocol was utilized. FINDINGS: CHEST: There is no axillary adenopathy. There is no hilar or mediastinal adenopathy. The heart is proper size. There is no pericardial or pleural effusion. Limited images of the upper abdomen are unremarkable. Lung window images demonstrate a calcified granuloma in the posterior left upper lobe. There is a 2 mm posterior right upper lobe nodule. It is uncertain if it has a central calcification. There is a 2 mm nodule in the right lower lobe well seen on image 49. IMPRESSION: Nodules as described. Lung RADS category 2. Recommend 12 month follow-up low-dose chest CT. Reviewed, Interpreted and Dictated by Florian Felton III, MD Transcribed by Kelly Piper Authenticated by Florian Felton III, MD on 06/27/2021 03:37:34 PM [facility]
--- NOTE | 2021-06-27 12:45 | MM_ITS ---
PROCEDURE INFORMATION: Exam: MG Bilateral Screening 3D Mammography Exam date and time: 06/27/2021 12:59 PM Age: 55 years old Clinical indication: Screening examination. Her maternal aunt had breast cancer. TECHNIQUE: Imaging protocol: Bilateral Screening tomosynthesis and 2D mammography including computer-aided detection (CAD) when performed. COMPARISON: 1. MG MM DIG SCREENING MAMM BI W/CAD 03/02/2019 10:48 AM 2. MG DMSB DIG MAMM-SCREEN ARNOLDO 08/23/2015 9:56 AM 3. MG DMDBAV DIG MAMM-DX BILAT W/ADD VIEWS 07/13/2010 3:12 PM 4. OT DIGMAMMDX MAMMOGRAM DX-CHUTE MAN N/C 06/23/2003 5:39 PM FINDINGS: MAMMOGRAPHY: Breast composition: The breast tissue is heterogeneously dense, which may obscure small masses. Mass: No suspicious mass. Architectural distortion: Two possible architectural distortions, with more lucent centers, about 2.5 cm, in the right upper outer quadrant, middle and posterior thirds better seen in the MLO view, which may be present in 08/23/2015, though comparison limited as no tomosynthesis in the 2016 mammogram. Calcifications: No suspicious calcifications. Asymmetric density: No developing asymmetry. Skin thickening: None. Axillary adenopathy: None. IMPRESSION: Patient to be recalled for right diagnostic spot compression in CC and true lateral and right breast ultrasound for further evaluation of right breast architectural distortions. ASSESSMENT: BI-RADS Category 0: Incomplete- Need Additional Imaging Evaluation and/or Prior Mammograms for Comparison
== END ==
PROVIDERS: PCP Internal Medicine Adolescent Medicine; Visit Provider Nurse Practitioner Family
DX: Z12.31 Encounter for screening mammogram for malignant neoplasm of breast (principal); Z87.891 Personal history of nicotine dependence
CPT/HCPCS: 71271; 77063; 77067

== ENCOUNTER → 2021-07-14 12:57 | Outpatient (CLI) | payer OTHER, SELFPAY ==
--- NOTE | 2021-07-14 12:59 | MM_ITS ---
PROCEDURE INFORMATION: Exam: US Right Breast, Complete MG Right Diagnostic Breast Tomosynthesis Exam date and time: 07/14/2021 12:56 PM Age: 55 years old Clinical indication: Patient recalled on the basis of a screening mammogram for further evaluation; Right breast; distortions TECHNIQUE: Imaging protocol: Complete ultrasound of all four quadrants of the Right breast and the retroareolar regions, including ultrasound of the axilla when performed. Right Diagnostic tomosynthesis and 2D mammography including computer-aided detection (CAD) when performed. Unilateral or bilateral exam. COMPARISON: 1. MG MM DIG SCREENING MAMM BI W/CAD 06/27/2021 12:59 PM 2. MG MM DIG SCREENING MAMM BI W/CAD 03/02/2019 10:48 AM FINDINGS: MAMMOGRAPHY: Digital diagnostic spot compression views of the right breast demonstrate normal overlapping fibroglandular structures without persistent definitive distortion or asymmetry identified. ULTRASOUND: Sonographic images of the right breast including the retroareolar region, all 4 quadrants and the axilla do not demonstrate any solid masses. Minimal subcentimeter cystic change is present. No architectural distortion or acoustical shadowing. No skin thickening or axillary adenopathy. IMPRESSION: No definitive persistent distortion on additional imaging. A precautionary six-month follow-up diagnostic right mammogram to ensure stability of the pattern identified unless otherwise clinically indicated. ASSESSMENT: BI-RADS Category 3: Probably benign
== END ==
PROVIDERS: PCP Internal Medicine Adolescent Medicine; Visit Provider Nurse Practitioner Family
DX: R92.8 Other abnormal and inconclusive findings on diagnostic imaging of breast (principal)
CPT/HCPCS: 76641; 77061; 77065; G0279